=== PATIENT | female | born 1970 | race Caucasian/White ===

== ENCOUNTER 2017-09-07 09:56 | Emergency (ER) | END 2017-09-07 12:05 | disposition home or self-care (01) ==

== ENCOUNTER 2018-03-20 10:27 | Emergency (ER) | payer MEDICAID ==
[~2018-03-20] VITALS: Ht 160 cm; Wt 98.5 kg
[~2018-03-20 10:27] MED LIST: ACET500C5 PO; CIPR500T4 PO; IBUP-1542 PO
[2018-03-20 10:30] VITALS: BP 179/100; PULSE 92; Ht 160 cm; Wt 98.5 kg
[2018-03-20] MEDS ORDERED: ALBUTEROL 0.083% (NEB) 2.5 MG/3 ML AMP HHN STA (10:58)
--- NOTE | 2018-03-20 10:58 | ERD ---
ER Documentation Chief Complaint Chief Complaint cough/congestion x 1 month; body chills and aches HPI 47-year-old female, with history of asthma and current smoker, presents to the emergency department, complaining of 1 month with intermittent episodes of upper respiratory symptoms that became worse during the last week. The patient is complaining about productive cough with greenish sputum, associated with wheezing, fever and body aches. ROS All systems reviewed and are negative except as per history of present illness. Medications Home Meds Active Scripts Azithromycin* (Zithromax*) 250 Mg Tablet, 250 MG PO .ZPACK DIRECTED, #6 TAB TAKE 500 MG (2 TABS) THE FIRST DAY THEN 250 MG (1 TAB) DAYS 2-5 Prov:ABDULLAHI FABIAN MD 03/20/18 Guaifenesin-Codeine Phosphate* (Guaifenesin* AC Cough Syrup) 473 Ml Liquid, 5 ML PO TID PRN for COUGH, #60 ML Prov:ABDULLAHI FABIAN MD 03/20/18 Prednisone* (Prednisone*) 20 Mg Tab, 40 MG PO DAILY for 4 Days, TAB Prov:ABDULLAHI FABIAN MD 03/20/18 Albuterol Sulfate* (Proair HFA*) 8.5 Gm Hfa.aer.ad, 2 PUFF INH Q4H PRN for WHEEZING AND SOB, #1 INHALER Prov:ABDULLAHI FABIAN MD 03/20/18 Acetaminophen* (Tylophen*) 500 Mg Capsule, 1 CAP PO Q6H PRN for PAIN AND OR ELEVATED TEMP, #20 CAP Prov:ROWAN SAMPSON PA-C 09/07/17 Ibuprofen* (Motrin*) 600 Mg Tab, 600 MG PO Q6, #30 TAB Prov:ROWAN SAMPSON PA-C 09/07/17 Ciprofloxacin Hcl* (Ciprofloxacin Hcl*) 500 Mg Tablet, 500 MG PO BID for 10 Days, TAB Prov:ROWAN SAMPSON PA-C 09/07/17 Allergies Allergies: Coded Allergies: Penicillins (Verified Allergy, Unknown, 03/20/18) PMhx/Soc Medical and Surgical Hx: pt denies Medical Hx, pt denies Surgical Hx Hx Alcohol Use: No Hx Substance Use: No Hx Tobacco Use: No Smoking Status: Current every day smoker Fmx Family History: No diabetes, No coronary disease Physical Exam Vitals Vital Signs Date Temp Pulse Resp B/P (MAP) Pulse Ox O2 O2 Flow FiO2 Time Delivery Rate 03/20/18 87 22 98 21 11:14 03/20/18 98.6 92 20 179/100 98 10:30 (126) Physical Exam Const: No acute distress Head: Atraumatic Eyes: Normal Conjunctiva ENT: Normal External Ears, Nose and Mouth. Neck: Full range of motion. No meningismus. Resp: Decreased breathing sounds with mild expiratory wheezing to auscultation bilaterally Cardio: Regular rate and rhythm, no murmurs Abd: Soft, non tender, non distended. Normal bowel sounds Skin: No petechiae or rashes Back: No midline or flank tenderness Ext: No cyanosis, or edema Neur: Awake and alert Psych: Normal Mood and Affect Results 24 hrs Current Medications Medications Dose Sig/Jose Start Time Status Last (Trade) Ordered Route PRN Stop Time Admin Dose Reason Admin Albuterol 5 mg ONCE STAT 03/20/18 DC 03/20/18 (Proventil HHN 10:58 03/20/18 11:14 0.083% (Neb)) 11:00 Ipratropium 0.5 mg ONCE ONCE 03/20/18 DC 03/20/18 [facility] 11:00 03/20/18 11:14 (Atrovent 11:01 0.02% (Neb)) Procedures/MDM Differential diagnosis include but not limited to: Respiratory infection bacterial/viral/fungal. Asthma/COPD, pneumonitis, allergies, GERD. Less likely foreign body aspiration, cardiac related, aspiration pneumonia, malignancy. Physical examination and clinical presentation consistent most likely with acute asthma exacerbation with early superimposed bacterial infection. During the ED course the patient remained stable, received a nebulized treatment in the ED presenting overall improvement of the symptoms, no new complaints. Clinical impression discussed with the patient who agrees with management. The patient is stable to be treated outpatient and will be discharged home. Some side effects of prescribed medications (headache, rash, nausea, vomiting, diarrhea, drowsiness, habituation, bleeding, hypertension, interactions with other medications) were reviewed. The patient was instructed to follow up with the primary care provider in the next 48h. If symptoms persist, worsen or new symptoms develop, then patient should return to the ED immediately. Disclaimer: Inadvertent spelling and grammatical errors are likely due to EHR/dictation software use and do not reflect on the overall quality of patient care. Also, please note that the electronic time recorded on this note does not necessarily reflect the actual time of the patient encounter. Departure Diagnosis: Primary Impression: Asthma Additional Impression: Smoker Condition: Stable Additional Instructions: Thank you very much for allowing us to participate in your care. Your health and safety is our top priority at [facility]. Call your primary care doctor TOMORROW for an appointment during the next 2-4 days and bring all the information and medications prescribed. Have prescriptions filled and follow precisely the directions on the label. If the symptoms get worse and your provider is unavailable, return to the Emergency Department immediately. ABDULLAHI FABIAN MD Mar 20, 2018 10:58
[2018-03-20] MEDS ORDERED: IPRATROPIUM (NEB) 0.5 MG/2.5 ML AMP HHN ONE (11:00)
[2018-03-20] MEDS ORDERED: AZIT250T PO (11:45)
[2018-03-20] MEDS ORDERED: GUAI473L22 PO (11:45)
[2018-03-20] MEDS ORDERED: ALBU8.5H8 INH (11:45)
[2018-03-20] MEDS ORDERED: PRED20TA PO (11:45)
[2018-03-20 11:59] VITALS: RESP 18
== END 2018-03-20 12:06 | disposition home or self-care (01) ==
LOC: FTE 10:27
DX: J45.901 Unspecified asthma with (acute) exacerbation (principal); F17.210 Nicotine dependence, cigarettes, uncomplicated
CPT/HCPCS: 94664; Z7502; Z7610

== ENCOUNTER 2018-08-15 09:35 | Emergency (ER) | payer MEDICAID ==
[~2018-08-15] VITALS: Wt 90.0 kg
[~2018-08-15 09:35] MED LIST changes: +ALBU8.5H8 INH; +AZIT250T PO; +GUAI473L22 PO; +PRED20TA PO
[2018-08-15 09:38] VITALS: BP 144/67; PULSE 85; RESP 18
[2018-08-15] MEDS ORDERED: IPRATROPIUM (NEB) 0.5 MG/2.5 ML AMP INH STA (10:06)
[2018-08-15] MEDS ORDERED: ALBUTEROL 0.5% (NEB) 2.5 MG/0.5 ML AMP INH STA (10:06)
[2018-08-15] MEDS ORDERED: IPRATROPIUM (NEB) 0.5 MG/2.5 ML AMP NEB STA (10:52)
[2018-08-15] MEDS ORDERED: AZIT250T PO (12:13)
[2018-08-15] MEDS ORDERED: PROM6.2515 PO (12:13)
[2018-08-15] MEDS ORDERED: ALBU8.5H8 INH (12:13)
[2018-08-15] MEDS ORDERED: PRED20TA PO (12:13)
--- NOTE | 2018-08-15 12:31 | ERD ---
ER Documentation Chief Complaint Chief Complaint flu since yesterday, body aches,chills, cough HPI This is a 47-year-old female who presents to the ED complaining of shortness of breath, wheezing, chest tightness and cough since yesterday. She has some associated chest pain, especially when coughing. She denies any congestion, body aches, fevers, chills, nausea, vomiting or any other symptoms. No known sick contacts. Patient states she is a smoker. ROS All systems reviewed and are negative except as per history of present illness. Medications Home Meds Active Scripts Albuterol Sulfate* (Proair HFA*) 8.5 Gm Hfa.aer.ad, 2 PUFF INH Q4H PRN for WHEEZING AND SOB, #1 INHALER Prov:AGUSTINIGRIKIANANA PA-C 08/15/18 Prednisone* (Prednisone*) 20 Mg Tab, 40 MG PO DAILY for 4 Days, TAB Prov:AGUSTINIGRIKIANANA PA-C 08/15/18 Promethazine Hcl* (Promethazine Hcl* Syrup) 6.25 Mg/5 Ml Syrup, 6.25 MG PO Q6H PRN for COUGH, #120 ML Prov:AGUSTINIGRANA SHELL PA-C 08/15/18 Azithromycin* (Zithromax*) 250 Mg Tablet, 250 MG PO .ZPACK DIRECTED, #6 TAB TAKE 500 MG (2 TABS) THE FIRST DAY THEN 250 MG (1 TAB) DAYS 2-5 Prov:ANA ESCOBAR PA-C 08/15/18 Azithromycin* (Zithromax*) 250 Mg Tablet, 250 MG PO .ZPACK DIRECTED, #6 TAB TAKE 500 MG (2 TABS) THE FIRST DAY THEN 250 MG (1 TAB) DAYS 2-5 Prov:ABDULLAHI FABIAN MD 03/20/18 Guaifenesin-Codeine Phosphate* (Guaifenesin* AC Cough Syrup) 473 Ml Liquid, 5 ML PO TID PRN for COUGH, #60 ML Prov:ABDULLAHI FABIAN MD 03/20/18 Prednisone* (Prednisone*) 20 Mg Tab, 40 MG PO DAILY for 4 Days, TAB Prov:ABDULLAHI FABIAN MD 03/20/18 Albuterol Sulfate* (Proair HFA*) 8.5 Gm Hfa.aer.ad, 2 PUFF INH Q4H PRN for WHEEZING AND SOB, #1 INHALER Prov:ABDULLAHI FABIAN MD 03/20/18 Acetaminophen* (Tylophen*) 500 Mg Capsule, 1 CAP PO Q6H PRN for PAIN AND OR ELEVATED TEMP, #20 CAP Prov:ROWAN SAMPSON PA-C 09/07/17 Ibuprofen* (Motrin*) 600 Mg Tab, 600 MG PO Q6, #30 TAB Prov:ROWAN SAMPSON PA-C 09/07/17 Ciprofloxacin Hcl* (Ciprofloxacin Hcl*) 500 Mg Tablet, 500 MG PO BID for 10 Days, TAB Prov:ROWAN SAMPSON PA-C 09/07/17 Allergies Allergies: Coded Allergies: Penicillins (Verified Allergy, Unknown, 03/20/18) PMhx/Soc Medical and Surgical Hx: pt denies Medical Hx, pt denies Surgical Hx Hx Alcohol Use: Yes Hx Substance Use: No Hx Tobacco Use: Yes Smoking Status: Current every day smoker Physical Exam Vitals Vital Signs Date Temp Pulse Resp B/P (MAP) Pulse Ox O2 O2 Flow FiO2 Time Delivery Rate 08/15/18 88 20 98 21 11:00 08/15/18 Nasal 10:14 Cannula 08/15/18 97.8 85 18 144/67 99 09:38 (92) Physical Exam Const: No acute distress. No respiratory distress. Head: Atraumatic Eyes: Normal Conjunctiva. ENT: Normal External Ears, Nose and Mouth. + Mild posterior OP erythema. No tonsillar edema or exudates. Bilateral TMs clear. Neck: Full range of motion. No meningismus. Resp: + Wheezing diffusely. No rhonchi, no rales. Good expiratory volume. Cardio: Regular rate and rhythm, no murmurs Skin: No petechiae or rashes Back: No midline or flank tenderness Ext: No cyanosis, or edema Neur: Awake and alert Psych: Normal Mood and Affect Results 24 hrs Current Medications Medications Dose Sig/Jose Start Time Status Last (Trade) Ordered Route PRN Stop Time Admin Dose Reason Admin Albuterol 2.5 mg ONCE STAT 08/15/18 DC 08/15/18 (Proventil INH 10:06 08/15/18 10:59 0.5% (Neb)) 10:07 Ipratropium 1 mg ONCE STAT 08/15/18 DC [facility] INH 10:06 08/15/18 (Atrovent 10:55 0.02% (Neb)) Ipratropium 0.5 mg ONCE STAT 08/15/18 DC 08/15/18 [place] NEB 10:52 08/15/18 10:59 (Atrovent 10:55 0.02% (Neb)) Procedures/MDM LABS & DIAGNOSTIC IMAGING: PROCEDURE: XR Chest. CLINICAL INDICATION: Shortness of breath. Wheezing. TECHNIQUE: Frontal chest x-ray was obtained. COMPARISON: None. FINDINGS: The heart is not enlarged. Mediastinum is not widened. No hilar masses seen. Lungs are clear of any alveolar infiltrate. Scattered reticular nodular markings are seen at the left lung base.. There is no effusion or pneumothorax. The osseous structures appear normal. IMPRESSION: No alveolar pneumonia. Increase reticular nodular markings left lung base. .Galen Galvin MD, MD Date Time Electronically viewed and signed by .Galen Galvin MD, MD on 08/15/2018 11:55 Influenza swab: negative ED PROCEDURES: 12-lead EKG interpretation as interpeted by Dr. Dye Normal Sinus Rhythm with ventricular rate of 77 beats per minute Normal axis Normal intervals No acute ST or T wave changes suggestive of acute ischemia or STEMI. ED COURSE: The patient was given 1 DuoNeb treatment, Decadron The medication was well tolerated and the patient had market improvement in symptoms. The patient remained stable throughout ED course. MEDICAL DECISION MAKIN-year-old female with history of nicotine use presents with cough and wheezing. She is afebrile here. Influenza negative. No hypoxia. Lung sounds improved status post 1 albuterol and Atrovent treatment. Chest x-ray is negative for pneumonia but does reveal evidence of interstitial lung disease. Patient was given copies of her chest x-ray and told to follow-up with her primary care provider for referral to [facility]. Given patient's clinical history, will treat symptoms as acute bronchitis with antibiotics. Patient given supportive medications as well. Strict return precautions were discussed. PRESCRIPTIONS: Promethazine, pro-air, prednisone, Zithromax SPECIALIST FOLLOW UP RECOMMENDED: Pulmonology Patient has been advised to follow up with primary care in 1-2 days. Smoking Cessation Therapy: Pt. was lectured for greater than 3 minutes on the health risks of continued smoking and the benefits of cessation. Departure Diagnosis: Primary Impression: Bronchitis Additional Impression: Interstitial lung disease Condition: Stable Patient Instructions: Bronchitis With Wheezing (Adult) Referrals: [facility] YOU HAVE RECEIVED A MEDICAL SCREENING EXAM AND THE RESULTS INDICATE THAT YOU DO NOT HAVE A CONDITION THAT REQUIRES URGENT TREATMENT IN THE EMERGENCY DEPARTMENT. FURTHER EVALUATION AND TREATMENT OF YOUR CONDITION CAN WAIT UNTIL YOU ARE SEEN IN YOUR DOCTORS OFFICE WITHIN THE NEXT 1-2 DAYS. IT IS YOUR RESPONSIBILITY TO MAKE AN APPOINTMENT FOR FOLOW-UP CARE. IF YOU HAVE A PRIMARY DOCTOR --you should call your primary doctor and schedule an appointment IF YOU DO NOT HAVE A PRIMARY DOCTOR YOU CAN CALL OUR PHYSICIAN REFERRAL HOTLINE AT IF YOU CAN NOT AFFORD TO SEE A PHYSICIAN YOU CAN CHOSE FROM THE FOLLOWING [facility] [address] [facility]. [facility] [address] [employer] [facility] [address] [facility] [facility] [address] [facility] [address] [facility]. [facility]. [address] [facility]. [facility] YOU HAVE RECEIVED A MEDICAL SCREENING EXAM AND THE RESULTS INDICATE THAT YOU DO NOT HAVE A CONDITION THAT REQUIRES URGENT TREATMENT IN THE EMERGENCY DEPARTMENT. FURTHER EVALUATION AND TREATMENT OF YOUR CONDITION CAN WAIT UNTIL YOU ARE SEEN IN YOUR DOCTORS OFFICE WITHIN THE NEXT 1-2 DAYS. IT IS YOUR RESPONSIBILITY TO MAKE AN APPOINTMENT FOR FOLOW-UP CARE. IF YOU HAVE A PRIMARY DOCTOR --you should call your primary doctor and schedule and appointment IF YOU DO NOT HAVE A PRIMARY DOCTOR YOU CAN CALL OUR PHYSICIAN REFERRAL HOTLINE AT . IF YOU CAN NOT AFFORD TO SEE A PHYSICIAN YOU CAN CHOSE FROM THE FOLLOWING [facility]: [facility] [address] [place] [address] [facility] [address] [place] [address] [facility] [address] [place] [address] [facility] URGENT C[facility]/SPECIALTIES Additional Instructions: Please follow-up with your primary care provider sometime this week. Take a copy of the chest x-ray with you. You must stop smoking. Take the medications I am prescribing you for the next few days. Return here for any new or worsening symptoms. ANA ESCOBAR PA-C Aug 15, 2018 12:31
== END 2018-08-15 12:20 | disposition home or self-care (01) ==
LOC: FTE 09:35
DX: J40 Bronchitis, not specified as acute or chronic (principal); J84.9 Interstitial pulmonary disease, unspecified
CPT/HCPCS: 71045; 87400; 93005; 94664; Z7502; Z7610